=== PATIENT | male | born 1965 | race Caucasian/White ===

== ENCOUNTER 2016-12-10 11:38 | Emergency (ER) | payer BC, OTHER ==
[~2016-12-10] VITALS: Ht 175.3 cm; Wt 102.3 kg
[~2016-12-10 11:38] MED LIST: GATI0.5S OPL; PRED1SUS3 OPL
[2016-12-10 11:47] VITALS: Ht 175.3 cm; Wt 102.3 kg
[2016-12-10] MEDS ORDERED: AMOX875T PO (12:08)
[2016-12-10] MEDS ORDERED: HYDR12.55 PO (12:08)
[2016-12-10 12:45] VITALS: O2SAT 96
[2016-12-10] MEDS ORDERED: MoRPHine SULFATE 10 MG/ML CARP/VIAL IV PRN (12:45)
[2016-12-10] MEDS ORDERED: ONDANSETRON INJ 2 MG/ML 2 ML VIAL IV PRN (12:45)
--- NOTE | 2016-12-10 12:50 | EMERGENCY ROOM VISIT NOTE ---
History Report prepared by Herson: Stephanie Simeon Under the Supervision of: Dr. Timi Hester M.D. First contact with patient: 12:34 Chief Complaint: HEADACHE Stated Complaint: Headache, vision problems, gait unsteadiness History of Present Illness The patient is a 51 year old male who presents to the Emergency Room with complaints of a worsened headache that began a week and a half ago. The pain is located on the right side of his head, mostly behind his right eye. He also complains of photophobia and right sided visual changes. He has occasional right sided extremity tingling. This morning, his pain worsened significantly to the point that he had difficulty walking. He has never had similar symptoms in the past. His current pain is an 8/10 in severity. Since his symptoms began, he has been seen by his doctor and was treated with antibiotics for a sinus infection. He is currently on Amoxicillin. He has not had any imaging studies since his symptoms began. Denies LOC, hearing changes, ear ringing, weakness, or other complaints. Source of History: patient Onset: a week and a half ago Position: head (right) Symptom Intensity: 8/10 Timing: worsening Modifying Factors (Worsening): other (light) Associated Symptoms: No LOC, No weakness Note: Other symptoms: right eye visual changes, intermittent right sided tingling Review of Systems All systems have been listed, reviewed, and are negative other than those previously mentioned. Please see Additional Medical History Sheet. Past Medical & Surgical Surgical Problems: (1) History of cholecystectomy Family History Cancer Diabetes mellitus Social History Smoking Status: Never Smoker Alcohol Use: none Drug Use: none Marital Status: Housing Status: lives with significant other Occupation Status: employed Current/Historical Medications Scheduled Amoxicillin & Pot Clavulanate (Augmentin 875-125 mg), 1 TAB PO BID Hydrochlorothiazide (Hydrochlorothiazide), 1 TAB PO DAILY Ondasetron Odt (Zofran Odt), 4 MG SL Q6H Scheduled PRN Ibuprofen Tab (Motrin), 600 MG PO Q6H PRN for Pain Oxycodone Immediate Rel Tab (Roxicodone Ir), 1-2 TAB PO Q4H PRN for Severe Pain Allergies Coded Allergies: No Known Allergies (Unverified , 12/10/16) Physical Exam Vital Signs Date Time Temp Pulse Resp B/P Pulse Ox O2 Delivery O2 Flow Rate FiO2 12/10/16 15:46 36.9 87 18 148/99 94 12/10/16 15:25 87 18 148/99 94 Nasal Cannula 2.0 12/10/16 14:03 95 16 163/101 95 Nasal Cannula 2.0 12/10/16 12:45 96 Room Air 12/10/16 12:03 74 12/10/16 11:47 36.9 79 18 164/104 95 Room Air Physical Exam GENERAL: Patient awake, alert, oriented x 3. Patient follows commands. Patient does not appear toxic. Patient is adequately hydrated and well- nourished. SKIN: No erythema, pallor, cyanosis or rash HEENT: Normal head, pupils equal, reactive to light and accommodation. Positive photophobia. Ears normal. Oral cavity and posterior pharynx appear normal. Neck: Without adenopathy, no neck vein distention. LUNGS: Clear to auscultation. No wheezes, no rales, no rhonchi. HEART: No murmurs. No gallops. No rubs ABDOMEN: No masses, no rebound, no hepatomegaly or splenomegaly. EXTREMITIES: No signs of trauma. No pedal or pretibial edema. No calf or thigh tenderness. NEUROLOGIC: Cranial nerves II-XII within normal limits. No gross motor sensory function deficits. Medical Decision & Procedures ER Provider Diagnostic Interpretation: Radiology results as stated below per my review and radiologist interpretation: HEAD CT NONCONTRAST CT DOSE: 729.78 mGycm HISTORY: severe headache TECHNIQUE: Multiaxial CT images of the head were performed without the use of intravenous contrast. Automated exposure control was utilized for this study. Comparison: None. Findings: The paranasal sinuses and mastoid air cells are clear. The calvarium and skull base are intact. The ventricles and sulci are within normal limits. There is no mass, hematoma, midline shift, or acute infarct. Impression: No acute intracranial abnormality. Electronically signed by: Martín Oro M.D. 12/10/2016 2:52 PM Dictated Date/Time: 12/10/2016 2:47 PM Laboratory Results 12/10/16 11:15 Red Blood Count 4.87, Mean Corpuscular Volume 87.7, Mean Corpuscular Hemoglobin 30.2, Mean Corpuscular Hemoglobin Concent 34.4, Mean Platelet Volume 9.9, Neutrophils (%) (Auto) 81.4, Lymphocytes (%) (Auto) 14.0, Monocytes (%) (Auto) 3.7, Eosinophils (%) (Auto) 0.5, Basophils (%) (Auto) 0.2, Neutrophils # (Auto) 7.19, Lymphocytes # (Auto) 1.24, Monocytes # (Auto) 0.33, Eosinophils # (Auto) 0.04, Basophils # (Auto) 0.02 12/10/16 11:15 Test 12/10/16 11:15 White Blood Count 8.84 K/uL (4.8-10.8) Red Blood Count 4.87 M/uL (4.7-6.1) Hemoglobin 14.7 g/dL (14.0-18.0) Hematocrit 42.7 % (42-52) Mean Corpuscular Volume 87.7 fL (80-100) Mean Corpuscular Hemoglobin 30.2 pg (25-34) Mean Corpuscular Hemoglobin Concent 34.4 g/dl (32-36) Platelet Count 276 K/uL (130-400) Mean Platelet Volume 9.9 fL (7.4-10.4) Neutrophils (%) (Auto) 81.4 % Lymphocytes (%) (Auto) 14.0 % Monocytes (%) (Auto) 3.7 % Eosinophils (%) (Auto) 0.5 % Basophils (%) (Auto) 0.2 % Neutrophils # (Auto) 7.19 K/uL (1.4-6.5) Lymphocytes # (Auto) 1.24 K/uL (1.2-3.4) Monocytes # (Auto) 0.33 K/uL (0.11-0.59) Eosinophils # (Auto) 0.04 K/uL (0-0.5) Basophils # (Auto) 0.02 K/uL (0-0.2) RDW Standard Deviation 41.2 fL (36.4-46.3) RDW Coefficient of Variation 12.8 % (11.5-14.5) Immature Granulocyte % (Auto) 0.2 % Immature Granulocyte # (Auto) 0.02 K/uL (0.00-0.02) Anion Gap 7.0 mmol/L (3-11) Est Creatinine Clear Calc Drug Dose 112.0 ml/min Estimated GFR () 111.9 Estimated GFR (Non- 96.6 BUN/Creatinine Ratio 19.2 (10-20) Calcium Level 9.1 mg/dl (8.5-10.1) Total Bilirubin 0.3 mg/dl (0.2-1) Aspartate Amino Transf (AST/SGOT) 21 U/L (15-37) Alanine Aminotransferase (ALT/SGPT) 28 U/L (12-78) Alkaline Phosphatase 70 U/L (45-117) Total Protein 7.4 gm/dl (6.4-8.2) Albumin 4.3 gm/dl (3.4-5.0) Globulin 3.1 gm/dl (2.5-4.0) Albumin/Globulin Ratio 1.4 (0.9-2) Laboratory results as stated above per my review. Medications Administered Medications (Trade) Dose Ordered Sig/Rowdy Route Start Time Stop Time Status Last Admin Dose Admin Morphine Sulfate (MoRPHine SULFATE INJ) 8 mg Q1H PRN IV 12/10/16 12:45 12/10/16 13:55 DC 12/10/16 12:51 8 MG Ondansetron HCl (Zofran Inj) 4 mg Q1HWA PRN IV 12/10/16 12:45 12/10/16 16:31 DC 12/10/16 12:51 4 MG Hydromorphone HCl (Dilaudid Inj) 1 mg PRN PRN IV 12/10/16 14:00 12/10/16 16:31 DC 12/10/16 15:22 1 MG ED Course 1235: Past medical records reviewed. The patient was evaluated in room B11. A complete history and physical examination was performed. 1245: Ordered Zofran Inj 4 mg IV, Morphine Sulfate 8 mg IV. 1400: Ordered Dilaudid Inj 1 mg IV. 1454: I reassessed the patient. He was feeling a little better. 1515: I reassessed the patient. He still has a headache and we discussed treatment options at length. I do not think that he requires a spinal tap. The patient will be discharged home after receiving 1 mg Dilaudid. Medical Decision Differential includes but is not limited to migraine, tension headache, sinus headache, cluster headache, cerebral mass, intracranial mass, encephalitis, meningitis, subarachnoid hemorrhage. Multiple labs and imaging were obtained. Please see above. The patient is afebrile and has no elevation of his white count. He has no pain with movement of his head or neck. The pain is centered in his right eye. Patient is photophobic. Patient did receive the above medications with moderate relief. I considered the possibility of a spinal tap at this point I do not believe he warrants that study. I do not believe he has encephalitis or meningitis nor do I believe he has a subarachnoid bleed. 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 The patient will be given additional narcotic medication taken home when necessary. The patient's to be off work today and tomorrow. He is to follow-up with his family physician within the next 3-4 days. [place] Drug Monitoring Program Search Results: patient reviewed within database, no issues identified Impression Primary Impression: Migraine variant Scribe Attestation The scribe's documentation has been prepared under my direction and personally reviewed by me in its entirety. I confirm that the note above accurately reflects all work, treatment, procedures, and medical decision making performed by me. Departure Information Dispostion Home / Self-Care Prescriptions Ondasetron Odt (ZOFRAN ODT) 4 Mg Tab 4 MG SL Q6H for Nausea, #6 TAB Prov: Timi Hester M.D. 12/10/16 Ibuprofen Tab (MOTRIN) 600 Mg Tab 600 MG PO Q6H Y for Pain, #20 TAB Prov: Timi Hester M.D. 12/10/16 Oxycodone Immediate Rel Tab (ROXICODONE IR) 5 Mg Tab 1-2 TAB PO Q4H Y for Severe Pain, #20 TAB Prov: Timi Hester M.D. 12/10/16 Referrals Wyatt Ellison M.D. (PCP) Patient Instructions My [facility] Additional Instructions 1-2 OxyIR every 4 hours as needed for severe pain. 600 mg ibuprofen every 6 hours as needed for moderate pain. Do not drive or operate machinery while taking any narcotics. 1 Zofran every 4 hours as needed for nausea. Continue your Augmentin until the prescription has been completed. REST Off work today and tomorrow. Follow-up with your family physician within the next 3-4 days. Return here sooner if the headache is getting any worse. Work Instructions Specific Date: 12/12/16
[2016-12-10 12:53] LABS: BASO % 0.2 %; BASO ABS # 0.02 K/uL (0-0.2); COMPLETE YES; EOS % 0.5 %; HEMATOCRIT 42.7 % (42-52); IG% 0.2 %; LYMPH ABS # 1.24 K/uL (1.2-3.4); MEAN CELL VOLUME 87.7 fL (80-100); MEAN CORPUSCULAR HEMOGLOBIN 30.2 pg (25-34); MEAN CORPUSCULAR HGB CONC 34.4 g/dl (32-36); MEAN PLATELET VOLUME 9.9 fL (7.4-10.4); MONO % 3.7 %; NEUT % 81.4 %; PLATELET COUNT 276 K/uL (130-400); RED BLOOD COUNT 4.87 M/uL (4.7-6.1); WHITE BLOOD COUNT 8.84 K/uL (4.8-10.8)
[2016-12-10 13:00] LABS: BUN/CREATININE RATIO 19.2 (10-20); CALCIUM 9.1 mg/dl (8.5-10.1); CREATININE 0.91 mg/dl (0.60-1.40); POTASSIUM 3.7 mmol/L (3.5-5.1)
[2016-12-10 13:03] LABS: ALB/GLOB RATIO 1.4 (0.9-2)
[2016-12-10] MEDS: HYDROmorphone INJ 1 MG/ML SYR IV PRN ×2 (14:00→15:22)
--- NOTE | 2016-12-10 14:54 | DIAGNOSTIC IMAGING REPORT ---
HEAD CT NONCONTRAST CT DOSE: 729.78 mGycm HISTORY: severe headache TECHNIQUE: Multiaxial CT images of the head were performed without the use of intravenous contrast. Automated exposure control was utilized for this study. Comparison: None. Findings: The paranasal sinuses and mastoid air cells are clear. The calvarium and skull base are intact. The ventricles and sulci are within normal limits. There is no mass, hematoma, midline shift, or acute infarct. Impression: No acute intracranial abnormality. Electronically signed by: Martín Oro M.D. 12/10/2016 2:52 PM Dictated Date/Time: 12/10/2016 2:47 PM
[2016-12-10] MEDS ORDERED: OXYC1TAB3 PO (15:27)
[2016-12-10] MEDS ORDERED: IBUP-1427 PO (15:27)
[2016-12-10] MEDS ORDERED: ONDA4TAB10 SL (15:27)
[2016-12-10 15:46] VITALS: BP 148/99; PULSE 87; TEMP 36.9; O2SAT 94
== END 2016-12-10 15:47 | disposition home or self-care (01) ==
LOC: EDBD 11:38 → C.EDB 11:39
DX: G43.909 Migraine, unspecified, not intractable, without status migrainosus (principal)